=== PATIENT | male | born 1970 | race Caucasian/White ===

== ENCOUNTER 2016-07-30 02:12 | Emergency (ER) | payer OTHER ==
[~2016-07-30] VITALS: Ht 182.9 cm; Wt 109.0 kg
[2016-07-30 02:15] VITALS: BP 161/105; PULSE 91; RESP 18; O2SAT 100
[2016-07-30] MEDS ORDERED: _Ondansetron ODT 4 mg Tablet PO PRN (05:50)
[2016-07-30] MEDS ORDERED: _oxyCODONE/APAP 5-325 mg Tablet PO PRN (05:50)
--- NOTE | 2016-07-30 05:59 | ED.REPORT ---
HPI-General Illness Date of Service Jul 30, 2016 ED Provider: Jeffery Flores MD 46yoM with past medical history remarkable for HTN presents with right sided flank pain starting in his sleep at 1:20 on 07/30/2016. The patient denies any pain like this before and denies any issues with kidney stones in the past. The patient states that the pain is constant but gets worse in waves going from severe to moderate to severe. He denies trouble with urination including no blood in his urine. HE denies fever or chills, or diarrhea/constipation. Nursing Notes Stated Complaint: ABDOMINAL PAIN Nursing Notes Reviewed: Yes Allergies: Coded Allergies: No Known Allergies (Verified , 02/07/04) Uncoded Allergies: No Known Allergies (Allergy, Unknown, 02/07/04) Scheduled PRN Ondansetron ODT (Zofran ODT) 8 Mg Tablet 8 MG PO Q4H PRN PRN For Nausea Oxycodone HCl/Acetaminophen 5-325 (Endocet 5-325) 1 Each Tablet 1-2 TABLET PO Q4H PRN PRN For Pain General Time Seen by MD: 02:30 Chief Complaint Abdominal pain Hx Obtained From: Patient, Spouse Arrived By: Walk-in Sudden in Onset?: Yes Onset Occurred: 1 - 4 hours ago Symptom Duration: Since onset Location: : Abdomen Quality: Sharp, Stabbing Severity: Current: Moderate Severity: Maximum: Severe Recent Healthcare: No recent doctor visit, No recent hospitalization Similar Sx Previous: No Past Medical History Past Medical History HTN Reports: Hypertension Past Surgical History none reported Family History Reports: Coronary artery disease Smoking History Former Smoker Social History Alcohol Use: Denies alcohol use Drug Use: Denies drug use Other Social History: Good social support, Local resident Ambulatory Status Independent Review of Systems Full Review of Systems Constitutional: Denies: Chills, Fever Eyes: Denies: Blurred bilateral, Visual loss bilateral Ears / Nose / Throat: Denies: Earache bilateral, Sore throat, Throat pain Respiratory: Denies: Dyspnea on exertion, Non-productive cough, Pleuritic pain Cardiovascular: Denies: Chest pain, Palpitations GI: Reports: Abdominal pain, Nausea, Denies: Bloody/tarry stool, Constipation, Diarrhea, Hematemesis, Hematochezia Male: Denies Dysuria, Denies Hematuria, Denies Urination decreased Musculoskeletal: Denies: Extremity swelling, Neck pain Hematologic: Denies Bleeding, Denies Bruising Endocrine: Denies: Weight gain, Weight loss Skin: Denies Bruising, Denies Rash, Denies Unexplained bruises Allergy / Immune: Denies: Itching, Rhinorrhea Neurologic: Denies: Change LOC, Confusion, Headache, Spinning sensation Psychiatric: Denies: Change mental status, Confusion Complete sys rev & neg: except as marked. Physical Exam Vital Signs Vital Signs Date Time Temp Pulse Resp B/P Pulse Ox O2 Delivery O2 Flow Rate FiO2 07/30/16 06:32 36.9 72 17 148/64 99 Room Air 07/30/16 02:15 36.3 91 18 161/105 100 Room Air Initial VS: Reviewed General/Constitutional: Well-developed, Well-nourished Head / Eyes: Atraumatic, Normocephalic, PERRL ENT: Mucous membranes moist, Conjunctiva normal, No scleral icterus Neck: Supple, Non-tender, Full range of motion Respiratory: Breath sounds normal, Clear to auscultation, No respiratory distress Cardiovascular: Regular rate & rhythm, Heart sounds normal, Intact distal pulses Abdomen / GI: Soft, Non-tender, No guarding, No rebound, No distention Back: No CVA tenderness Lymphatic: No lymphadenopathy Extremities: Vascular intact, Neuro intact, No swelling, No tenderness Skin: Warm, Dry, No cyanosis Neurologic: Alert, Oriented, Nonfocal Psychiatric: Mood/affect normal, Behavior normal, Normal thought content General/Constitutional: Awake, Alert, Cooperative Distress / Hydration: Positive: Distress severe Abdomen: Atraumatic, Soft, Non-tender, No guarding, No rebound, BS normoactive , No distention, No hernia, No palpable mass, No pulsatile mass Skin: Color NL, Warm, Dry, Turgor NL Psychiatric: Cognitive function NL, Judgment/insight NL, Thought content NL Interpretation & Diagnostics CT Abd / Pelvis Interpretation right 2mm kidney stone in the distal ureter near the bladder, mild right hydronephrosis with perinephric fluid collection consistent with urinoma or possibly edema Study type: Abdominal CT IV contrast Interpretation / Wet Read by: Interpret - Radiologist NL CT Abdomen Findings: No free air Genitourinary: Calculus ureter R, Hydronephrosis R (mild) Re-Eval/Medical Decision Med Decision/Clinical Course 46yoM with no history of kidney stones presents with 2mm kidney stone in his distal ureter noted on CT abdomen with IV contrast. The patient will be discharged with Percocet 5-325mg #30 as needed for pain as well as Zofran 8mg #14 as needed for nausea. He is advised to contact urology after DC from ED for follow up. Directions for straining urine given. 46-year-old no prior history of nephrolithiasis presents with a 2 mm stone in the distal right ureter. He also has an apparent urinoma around the kidney. This may be simple edema but appears more consistent with urinoma. Minimal residual hydronephrosis. No fever or symptoms to give evidence of infection. Ordered urinalysis apparently not obtained. Creatinine moderately elevated, with no prior baseline. Referred to urology. Still likely to pass this stone despite the apparent perforation. Home with Percocet, Zofran, and follow up with urology. Discharge & Departure Shift Change Sign-Out Response to Therapy: Improved Primary Impression: Kidney stone on right side Additional Impressions: Urinoma CAT (acute kidney injury) Disposition: Home Discharge Condition All VS Reviewed: Yes Condition: Stable Patient Instructions: How to Strain Your Urine (ED) Additional Instructions: During your visit to [facility] Emergency Department we obtained blood work for infectious markers, blood cell counts, and electrolytes. We obtained high resolution imaging of your abdomen which showed a 2mm kidney stone. We will send you home with - Oxycodone Pain medication - Zofran Nausea medications When taking Percocet pain medications DO NOT drive, DO NOT drink alcohol, DO NOT take extra acetaminophen (Tylenol). Do not hesitate to call emergency services or your primary care physician if you experience any of the following: -difficulty urinating including trouble starting a stream or significant blood and pain on urination -worsening flank pain -High unrelenting fevers. -Uncontrolled vomiting. -dizziness or loss of consciousness. -Chest pain or severe shortness of breath. Follow up with your primary care physician in 1-2 weeks time following your emergency department visit for medication checks and general well-being. Contact information for [facility] urologists are attached, please contact Urology as soon as possible after discharge from [facility] ED. Also included are directions for straining your urine to capture your kidney stone. You should take the stone into your doctor for analysis which may help determine the cause of your stone formation. Referrals: Chinmay Orr MD (PCP) Kalpesh Patino MD Attending Statement As attending of record for this patient, I conducted an independent history and physical examination, and agree with the resident documentation as above, and as amended. copies to: Chinmay Orr MD, NICHOLAS K DO Jul 30, 2016 05:46 Jeffery Flores MD Jul 30, 2016 07:39
[2016-07-30] MEDS ORDERED: OXYC-407 PO (06:04)
[2016-07-30] MEDS ORDERED: ONDA8TAB7 PO (06:04)
[2016-07-30] MEDS ORDERED: HYDROmorphone 0.5 mg/0.5 mL iSecure Syringe ONE ×2 (06:15→14:46)
[2016-07-30 06:32] VITALS: BP 148/64; PULSE 72; RESP 17; O2SAT 99
[2016-07-30 08:22] LABS: BASOPHILS % (AUTO) 0.2 % (0-3); EOSINOPHILS % (AUTO) 2.7 % (0-5); MONOCYTES % (AUTO) 9.7 % (4-12); Mean Corpuscular Volume 82.3 fL (81-100); NEUTROPHILS % (AUTO) 40.2 % (40-74); Platelet Count 360 bil/L (150-400)
[2016-07-30 08:23] LABS: APPEARANCE,URINE CLEAR (CLEAR,HAZY); COLOR,URINE YELLOW (YELLOW); OCCULT BLOOD,URINE SMALL (NEGATIVE); UROBILINOGEN,URINE NORMAL (NORMAL)
--- NOTE | 2016-07-30 11:02 | DRSVH ---
PROCEDURE: CT ABDOMEN AND PELVIS WITH CONTRAST ([id number]) INDICATIONS: Right side abdominal pain. TECHNIQUE: After the administration of intravenous contrast, 5 mm thick sections acquired from the diaphragm to the symphysis. 5 mm coronal and sagittal reformats were acquired. For radiation dose reduction, the following was used: automated exposure control, adjustment of mA and/or kV according to patient siz e. COMPARISON: None. FINDINGS: Image quality: Excellent. ABDOMEN: Lung bases: There is bibasilar atelectasis. There is pleural-parenchymal scar or atelectasis in lingu la. Heart size is normal. Solid organs: There is diffuse hepatic fatty infiltration. Liver and spleen are normal in size and e nhancement. Gallbladder is normal. Biliary system is non dilated. Pancreas enhances normally. No adrenal nodules. There is mild right hydronephrosis with perinephric stranding. A 4 mm stone is noted in the distal ri ght ureter near the right ureterovesical junction. There is also mild perirenal stranding on the righ t greater. Kidneys demonstrate normal size and enhancement. Peritoneum and bowel: Bowel loops demonstrate normal wall thickness and caliber. Normal appendix. N o free fluid or air. Nodes and vessels: No retroperitoneal or mesenteric adenopathy by size criteria. Aorta and inferior vena cava are normal in size. Miscellaneous: No ventral hernias. PELVIS: Genitourinary: Bladder wall thickness is normal. Miscellaneous: No inguinal hernias or adenopathy. Bones: No suspicious bony lesions. No vertebral body compression fractures. IMPRESSION: 1. A 4 mm obstructive stone the distal right ureter near the uterovesical junction causing mild right hydronephrosis and perinephric stranding. 2. Hepatic steatosis. No significant discrepancy with the overnight caregiver radiology preliminary report. Dictated by: Mariella Spencer M.D. on 07/30/2016 at 10:51 Approved by: Mariella Spencer M.D. on 07/30/2016 at 11:00
[2016-07-30] MEDS ORDERED: HYDROmorphone 1 mg/mL Inj ONE ×3 (14:46)
== END 2016-07-30 07:34 | disposition home or self-care (01) ==
LOC: SED 02:12
DX: N20.0 Calculus of kidney (principal); N36.8 Other specified disorders of urethra; N17.9 Acute kidney failure, unspecified; I10 Essential (primary) hypertension; Z87.891 Personal history of nicotine dependence
CPT/HCPCS: 74177; 80053; 81000; 83605; 83735; 85025; 93005; 96361; 96374; 99285; J1170; Q9967

== ENCOUNTER 2016-08-02 01:32 | Emergency (ER) | payer OTHER ==
[~2016-08-02] VITALS: Ht 175.3 cm; Wt 109.1 kg
[~2016-08-02 01:32] MED LIST: ONDA8TAB7 PO; OXYC-407 PO
[2016-08-02 01:34] VITALS: BP 153/98; PULSE 108; RESP 16; O2SAT 96
[2016-08-02] MEDS ORDERED: 0.9% Sodium Chloride 1,000 ML IV SCH (01:45)
[2016-08-02] MEDS ORDERED: HYDROmorphone 1 mg/mL Inj IVPUSH PRN (01:45)
--- NOTE | 2016-08-02 02:32 | ED.REPORT ---
HPI-General Illness Date of Service Aug 02, 2016 ED Provider: Davide Jaquez DO 46yoM with known right nephrolithiasis and past medical history remarkable for HTN presents with continued right sided flank pain since being diagnosed with kidney stones on 07/30/2016. The patient states that the pain improved today briefly but has since returned and is now constant but gets worse in waves going from severe to moderate to severe. Now the pain is radiating into his groin. He denies trouble with urination including no blood in his urine. HE denies fever or chills. He has had constipation since starting oxycodone. The patient was seen by [facility] urology and declined to have the stone removed, electing to wait until it passes on its own. Nursing Notes Stated Complaint: LOWER BACK PAIN Chief Complaint: Male Abdominal Pain Nursing Notes Reviewed: Yes Allergies: Coded Allergies: No Known Allergies (Verified , 02/07/04) Uncoded Allergies: No Known Allergies (Allergy, Unknown, 02/07/04) Scheduled Tamsulosin (Flomax) 0.4 Mg Capsule 0.4 MG PO DAILY Scheduled PRN Bisacodyl (Dulcolax) 5 Mg Tablet.dr 5 MG PO DAILY PRN PRN For Constipation Ondansetron ODT (Zofran ODT) 8 Mg Tablet 8 MG PO Q4H PRN PRN For Nausea Ondansetron ODT (Zofran ODT) 4 Mg Tablet 4 MG PO Q4H PRN PRN For Nausea Oxycodone HCl/Acetaminophen 5-325 (Endocet 5-325) 1 Each Tablet 1-2 TABLET PO Q4H PRN PRN For Pain Polyethylene Glycol 3350 (Miralax) 17 Gm Powd.pack 17 GM PO MORNING PRN PRN For Constipation oxyCODONE-Acetaminophen 5-325 mg (oxyCODONE-Acetaminophen 5-325 mg) 1 Each Tablet 1-2 TAB PO Q6H PRN PRN For Pain General Time Seen by MD: 01:00 Chief Complaint Abdominal pain, Back pain (right sided) Hx Obtained From: Patient Arrived By: Walk-in Sudden in Onset?: No Onset Occurred: 3 days ago Symptom Duration: Waxes and wanes Location: : Abdomen: Back (right flank) Quality: Sharp, Stabbing Radiation: : Abdomen (lower abdomen and groin) Severity: Current: Moderate Severity: Maximum: Severe Recent Healthcare: Recent doctor visit, Recent testing, Previous diagnosis, Prior workup Similar Sx Previous: Yes Past Medical History Past Medical History HTN kidney stones Reports: Hypertension Past Surgical History none reported Family History Reports: Coronary artery disease Smoking History Former Smoker Social History Alcohol Use: Denies alcohol use Drug Use: Denies drug use Other Social History: Good social support, Local resident Ambulatory Status Independent Review of Systems Full Review of Systems Constitutional: Denies: Chills, Fever Cardiovascular: Denies: Chest pain, Dyspnea on exertion, Edema GI: Reports: Abdominal pain, Constipation, Denies: Diarrhea Male: Reports Flank pain, Reports Urination decreased, Denies Dysuria, Denies Hematuria Skin: Denies Bruising, Denies Swelling, Denies Unexplained bruises Complete sys rev & neg: except as marked. Physical Exam Vital Signs Vital Signs Date Time Temp Pulse Resp B/P Pulse Ox O2 Delivery O2 Flow Rate FiO2 08/02/16 01:34 37.0 108 16 153/98 96 Room Air Initial VS: Reviewed General/Constitutional: Awake, Alert, Well appearing Distress / Hydration: Positive: Distress moderate Head / Eyes: Normocephalic, PERRL, EOMI, No scleral icterus, Conjunctiva NL ENT: Airway patent, Mucous membranes moist, Pharynx NL Neck: Supple, No meningismus, Full range of motion, No swelling, Non-tender, No masses Respiratory / Chest: Breath sounds NL, No respiratory distress, No rales, No rhonchi, No wheezing Cardiovascular: Heart rate NL, Regular rhythm, Heart sounds NL, Cap refill not delayed, Peripheral circulation NL Abdomen: Non-tender, No guarding, No rebound Back: Inspection NL, Painless range of motion, Non-tender, No CVA tenderness Interpretation & Diagnostics Lab Results Interpretation Test 08/02/16 01:50 08/02/16 02:30 Hold Purple Top Tube Received (Received) Hold Blue Top Tube Received (Received) Hold [place] Top Tube Received (Received) Urine Color Dark yellow (YELLOW) Urine Appearance Clear (CLEAR,HAZY) Urine pH 6.5 (5.0-8.0) Urine Specific [place] 1.010 (1.003-1.035) Urine Protein Negativemg/dL (NEG,TRACE) Urine Glucose (UA) Negativemg/dL (NEGATIVE) Urine Ketones Tracemg/dL (NEGATIVE) Urine Occult Blood Large (NEGATIVE) Urine Nitrite Negative (NEGATIVE) Urine Bilirubin Negative (NEGATIVE) Urine Urobilinogen Normalmg/dL (NORMAL) Urine Leukocyte Esterase Small (NEGATIVE) Urine RBC 3-10/hpf (0-2) Urine WBC 0-5/hpf (0-5) Urine Epithelial Cells Occasional/hpf (NONE-MOD) Urine Crystals None seen (NONE SEEN) Urine Bacteria Few/hpf (NONE-FEW) Urine Hyaline Casts None/lpf (NONE) Urine Granular Casts None seen (NONE SEEN) Urine Waxy Casts None seen (NONE SEEN) Urine Red Blood Cell Casts None seen (NONE SEEN) Urine White Blood Cell Casts None seen (NONE SEEN) Urine Mucus None seen (None Seen) Urine Trichomonas None seen (NONE SEEN) Urine Yeast None (NONE SEEN) Urinalysis Comment None Urine Culture Reflexed Indicated Hold Urine Received (Received) Re-Eval/Medical Decision Med Decision/Clinical Course 46yoM with known 2mm nephrolithiasis presents with continuation of symtpoms. Prior CT imaging showed a 2mm stone in the distal ureter with a likely Urinoma around his right kindey. Will start IV fluids, Dilaudid and Tamsulosin. The patient will be sent with Tamsulsin bowel regimen with Magnesium Citrate and Dulcolax suppository. He has follow up with Urology on Thursday. Will wncourage the patient to use stool softeners and NSAIDS. Counseled Regarding: Diagnosis, Need for follow-up, When/why to return to ED Discharge & Departure Primary Impression: Kidney stone on right side Additional Impression: Urinoma Disposition: Home Discharge Condition All VS Reviewed: Yes Condition: Stable Patient Instructions: How to Strain Your Urine (ED), Ureteroscopic Kidney Stone Removal (DC) Additional Instructions: During your visit to [facility] Emergency Department we gave you pain medication and IV fluids for hydration as well as checked your urine for infection. We will send you home with - Oxycodone Pain medication - Zofran Nausea medications - Tamsulosin for ureter relaxation to hopefully help you pass your stone - one time doses of Magnesium Citrate and Dulcolax suppository for constipation - Please also take Ibuprofen or Naproxen over the counter as directed for the inflammation caused by the stone in your ureter. - When taking Percocet medication you should also take a stool softener. Miralax and Dulcolax are recommended for bulking and increased gut motility. Paper prescriptions have been given for these over the counter medication to help you remember to pick these mediations up at the pharmacy. When taking Percocet pain medications DO NOT drive, DO NOT drink alcohol, DO NOT take extra acetaminophen (Tylenol). Do not hesitate to call emergency services or your primary care physician if you experience any of the following: -difficulty urinating including trouble starting a stream or significant blood and pain on urination -worsening flank pain -High unrelenting fevers. -Uncontrolled vomiting. -dizziness or loss of consciousness. -Chest pain or severe shortness of breath. Follow up with your primary care physician in 1-2 weeks time following your emergency department visit for medication checks and general well-being. Contact information for [facility] urologists are attached, please continue to follow up with Urology after discharge from [facility] ED. Also included are educational material on stone removal and directions for straining your urine to capture your kidney stone. You should take the stone into your doctor for analysis which may help determine the cause of your stone formation. Referrals: Chinmay Orr MD (PCP) Attending Statement As final attending of record for this patient, I assumed care from Dr. Jaquez at 2 :30AM. I agree with assessment and plans per the resident physician and agree with his documentation as above. copies to: Chinmay Orr MD, Nicholas K DO Aug 02, 2016 02:24 Jeffery Flores MD Aug 02, 2016 06:36 Davide Jaquez DO Aug 02, 2016 18:03
[2016-08-02] MEDS ORDERED: TAMS0.4C98 PO (02:38)
[2016-08-02] MEDS ORDERED: ONDA4TAB9 PO (02:38)
[2016-08-02] MEDS ORDERED: POLY17PO6 PO (02:38)
[2016-08-02] MEDS ORDERED: BISA-67 PO (02:38)
[2016-08-02] MEDS ORDERED: OXYC1TAB24 PO (02:38)
[2016-08-02 03:09] LABS: APPEARANCE,URINE CLEAR (CLEAR,HAZY); COLOR,URINE DARK YELLOW (YELLOW); OCCULT BLOOD,URINE LARGE (NEGATIVE); PH,URINE 6.5 (5.0-8.0); UROBILINOGEN,URINE NORMAL (NORMAL)
[2016-08-02] MEDS ORDERED: Sodium Chloride LOK Flush 10 mL Syringe IVFLUSH SCH (08:30)
== END 2016-08-02 03:42 | disposition home or self-care (01) ==
LOC: SED 01:32
DX: N20.0 Calculus of kidney (principal); N36.8 Other specified disorders of urethra; I10 Essential (primary) hypertension; Z87.891 Personal history of nicotine dependence
CPT/HCPCS: 81000; 87086; 96361; 96374; 96375; 99285; J1170; J7030